=== PATIENT | female | born 1960 | race Caucasian/White ===

== ENCOUNTER → 2016-06-09 | Outpatient (CLI) | payer MEDICAID ==
--- NOTE | 2016-06-15 16:35 | MA ---
Screening Digital Mammogram Clinical Indications: Routine screening. Technique: Standard cephalocaudal and mediolateral oblique projections were obtained. An additional oblique lateral view is performed of the left breast. This examination was processed by the [employer] uter aided detection system. Comparison: November 2013 , October 2008 and June 2007. Breast density: D; The breast tissue is extremely dense. This may lower the sensitivity of mammograph y. Findings: CAD was reviewed. There is a new 13 mm rounded density in the central left breast seen dir ectly behind the left nipple on the cc view. Not all margins are well-defined on the cc view. This is obscured by dense breast parenchyma on the oblique lateral view. Remainder of the left and right eileen ast are stable. Impression: Possible new mass central left breast BI-RADS 0. Additional imaging left breast. Recommendation: Ultrasound for further evaluation, to differentiate cyst from solid. [facility] will send a result letter to the patient. Negative mammography should not preclude additional workup of a clinically suspicious finding. The patient's information is entered into a reminder system with a target due date for her next mammo gram.
== END ==
LOC: CIMAGING 08:03
DX: Z12.31 Encounter for screening mammogram for malignant neoplasm of breast (principal)
CPT/HCPCS: G0202

== ENCOUNTER → 2016-06-29 | Outpatient (CLI) | payer MEDICAID | LOC: CIMAGING 13:57 | DX: N60.02 Solitary cyst of left breast (principal) | CPT/HCPCS: 76641-PO ==

== ENCOUNTER 2017-05-22 09:27 | Emergency (ER) | payer MEDICAID ==
[2017-05-22 09:36] VITALS: O2SAT 99
[2017-05-22] MEDS ORDERED: NS 1,000 ML IV ONE (09:36)
--- NOTE | 2017-05-22 09:43 | EDPHY ---
H & P Stated Complaint: Bloody stool x 3 days Time Seen by Provider: 05/22/17 09:43 HPI/ROS: CHIEF COMPLAINT: Bloody stool, left lower quadrant pain HISTORY OF PRESENT ILLNESS: The patient has a history of diverticulitis. She had 3 bouts of diverticulitis last year to which required in-patient hospitalization. She has not been evaluated as an outpatient for possible colectomy. She presents to the ED with a 3 day history of bloody stool and left lower quadrant pain. She denies any vomiting. She denies melena. She denies any fever, cough or congestion. The patient has a past medical history significant for osteoarthritis. She takes no prescription medications. REVIEW OF SYSTEMS: A comprehensive 10 point review of systems is otherwise negative aside from elements mentioned in the history of present illness. Source: Patient Exam Limitations: No limitations - Personal History Current Tetanus Diphtheria and Acellular Pertussis (TDAP): Yes - Medical/Surgical History Hx Asthma: No Hx Chronic Respiratory Disease: No Hx Diabetes: No Hx Cardiac Disease: No Hx Renal Disease: No Hx Cirrhosis: No Hx Alcoholism: No Hx HIV/AIDS: No Hx Splenectomy or Spleen Trauma: No Other PMH: diverticulitis, OA, PTSD, Anxiety, ETOH abuse - Social History Smoking Status: Never smoked - Physical Exam Exam: General Appearance: Alert, no distress Eyes: Pupils equal and round no pallor or injection ENT, Mouth: Mucous membranes moist Respiratory: There are no retractions, lungs are clear to auscultation Cardiovascular: Regular rate and rhythm Gastrointestinal: Tenderness to palpation left lower quadrant, no peritoneal signs, normal bowel sounds Neurological: A&O, normal motor function, normal sensory exam, normal cranial nerves Skin: Warm and dry, no rashes Musculoskeletal: Neck is supple nontender Extremities: symmetrical, full range of motion Constitutional: Initial Vital Signs Temperature (C) 36.3 C 05/22/17 09:33 Heart Rate 88 05/22/17 09:33 Respiratory Rate 18 05/22/17 09:33 Blood Pressure 120/87 H 05/22/17 09:33 O2 Sat (%) 99 05/22/17 09:33 O2 Delivery Mode Room Air Allergies/Adverse Reactions: No Known Allergies Allergy (Unverified 05/22/17 09:33) Home Medications: Medication Instructions Recorded Ondansetron Odt [Zofran Odt] 4 mg PO Q4PRN PRN #20 tab 05/22/17 levOFLOXACIN [Levaquin] 500 mg PO DAILY #10 tab 05/22/17 metroNIDAZOLE [Flagyl 500 mg (RX)] 500 mg PO TID #30 tab 05/22/17 oxyCODONE/APAP 5/325 [Percocet 1 - 2 tab PO Q6-8PRN PRN #20 tab 05/22/17 5/325 (RX)] Medical Decision Making ED Course/Re-evaluation: The patient presents the ED with left lower quadrant pain and slightly bloody stool. She is afebrile without significant leukocytosis. She has no peritoneal findings on exam. She has a history of multiple recurrent bouts of diverticulitis. The patient appears appropriate for outpatient management. I do not feel that imaging is indicated given her known history of diverticular disease and reassuring clinical examination. The patient will be discharged home with prescriptions for Levaquin and Flagyl. She is given customary aftercare instructions and return precautions. I have recommended the patient follow up with our on-call surgeon to discuss the role of operative intervention and treatment of her disease. I re-evaluated the patient at 11:00 a.m.. She is comfortable with this plan and disposition. She is given customary aftercare instructions and return precautions. Differential Diagnosis: Differential diagnosis considered includes peritonitis, diverticulitis, perforation, obstruction - Data Points Laboratory Results: Laboratory Results 05/22/17 09:32 05/22/17 09:32 05/22/17 05/22/17 09:32 09:32 WBC 5.27 10^3/uL 10^3/uL (3.80-9.50) RBC 4.58 10^6/uL 10^6/uL (4.18-5.33) Hgb 14.2 g/dL g/dL (12.6-16.3) Hct 41.8 % % (38.0-47.0) MCV 91.3 fL fL (81.5-99.8) MCH 31.0 pg pg (27.9-34.1) MCHC 34.0 g/dL g/dL (32.4-36.7) RDW 12.5 % % (11.5-15.2) Plt Count 322 10^3/uL 10^3/uL (150-400) MPV 8.6 fL L fL (8.7-11.7) Neut % (Auto) 62.1 % % (39.3-74.2) Lymph % (Auto) 24.5 % % (15.0-45.0) [place] % (Auto) 9.3 % % (4.5-13.0) Eos % (Auto) 3.0 % % (0.6-7.6) Baso % (Auto) 0.9 % % (0.3-1.7) Nucleat RBC Rel Count 0.0 % % (0.0-0.2) Absolute Neuts (auto) 3.27 10^3/uL 10^3/uL (1.70-6.50) Absolute Lymphs (auto) 1.29 10^3/uL 10^3/uL (1.00-3.00) Absolute Monos (auto) 0.49 10^3/uL 10^3/uL (0.30-0.80) Absolute Eos (auto) 0.16 10^3/uL 10^3/uL (0.03-0.40) Absolute Basos (auto) 0.05 10^3/uL 10^3/uL (0.02-0.10) Absolute Nucleated RBC 0.00 10^3/uL 10^3/uL (0-0.01) Immature Gran % 0.2 % % (0.0-1.1) Immature Gran # 0.01 10^3/uL 10^3/uL (0.00-0.10) Sodium 142 mEq/L mEq/L (134-144) Potassium 3.9 mEq/L mEq/L (3.5-5.2) Chloride 104 mEq/L mEq/L (97-110) Carbon Dioxide 23 mEq/l mEq/l (22-31) Anion Gap 15 mEq/L mEq/L (8-16) BUN 10 mg/dL mg/dL (7-23) Creatinine 0.7 mg/dL mg/dL (0.6-1.0) Estimated GFR > 60 Glucose 160 mg/dL H mg/dL (70-100) Calcium 10.4 mg/dL mg/dL (8.5-10.4) Medications Given: Discontinued Medications Sodium Chloride (Ns) 1,000 mls @ 0 mls/hr IV EDNOW ONE; Wide Open PRN Reason: Protocol Stop: 05/22/17 09:37 Last Admin: 05/22/17 09:44 Dose: 1,000 mls Departure - Departure Disposition: Home, Routine, Self-Care Clinical Impression: Acute diverticulitis Condition: Good Instructions: Diverticulitis (ED) Additional Instructions: 1. Please return to the ED for markedly worsening pain, fever, vomiting or other concerns. 2. Antibiotics as directed for next 10 days. 3. Percocet as needed for pain, Zofran as needed for nausea. 4. You have been given the number of our on-call general surgeon Dr. Patel. I recommend scheduling a follow-up visit with her to discuss the role of possible surgical intervention in control of your chronic diverticulitis. Referrals: Paula Patel MD [Medical Doctor] - As per Instructions Prescriptions: levOFLOXACIN [Levaquin] 500 mg PO DAILY #10 tab metroNIDAZOLE [Flagyl 500 mg (RX)] 500 mg PO TID #30 tab Ondansetron Odt [Zofran Odt] 4 mg PO Q4PRN PRN #20 tab PRN Reason: For Nausea oxyCODONE/APAP 5/325 [Percocet 5/325 (RX)] 1 - 2 tab PO Q6-8PRN PRN #20 tab PRN Reason: for pain
[2017-05-22 09:44] LABS: PLATELET COUNT 322 10^3/uL (150-400)
[2017-05-22 11:23] VITALS: BP 115/74; PULSE 84; RESP 16; TEMP 98.2
== END 2017-05-22 11:22 | disposition home or self-care (01) ==
LOC: EDUNIT#
DX: K57.92 Diverticulitis of intestine, part unspecified, without perforation or abscess without bleeding (principal); E86.9 Volume depletion, unspecified

== ENCOUNTER 2017-06-15 05:47 | Inpatient (IN) | payer MEDICAID ==
[2017-06-15] MEDS ORDERED: LIDOCAINE 1% 2 ML INJ ID PRN (05:59)
[2017-06-15] MEDS ORDERED: LR 1,000 ML IV ONE (05:59)
[2017-06-15] MEDS ORDERED: cefOXitin SODIUM 2 GM in STERILE WATER INJ 21 ML IV ONE (06:00)
[2017-06-15] MEDS ORDERED: MIDAZOLAM 2 MG/2 ML VIAL IVP ONE (06:54)
--- NOTE | 2017-06-15 06:55 | PDANEPAE ---
ANE History of Present Illness diverticulosis and recurrent diverticulitis ANE Past Medical History - Cardiovascular History Hx Hypertension: No Hx Arrhythmias: No Hx Chest Pain: No Hx Coronary Artery / Peripheral Vascular Disease: No Hx CHF / Valvular Disease: No Hx Palpitations: No - Pulmonary History Hx COPD: No Hx Asthma/Reactive Airway Disease: No Hx Recent Upper Respiratory Infection: No Hx Oxygen in Use at Home: No Hx Sleep Apnea: No Sleep Apnea Screening Result - Last Documented: Negative - Neurologic History Hx Cerebrovascular Accident: No Hx Seizures: No Hx Dementia: No - Endocrine History Hx Diabetes: No Hypothyroid: No Hyperthyroid: No Obesity: no - Renal History Hx Renal Disorders: No - Liver History Hx Hepatic Disorders: No - Neurological & Psychiatric Hx Hx Neurological and Psychiatric Disorders: Yes Neurological / Psychiatric History Comment: PTSD. ANXIETY - Cancer History Hx Cancer: No - Congenital Disorder History Hx Congenital Disorders: No - GI History GERD: no Hx Gastrointestinal Disorders: Yes Gastrointestinal History Comment: DIVERTICULITIS 4X OVER PAST YEAR. BLOODY STOOLS - Other Health History Other Health History: OSTEOARTHRITIS ALL JOINTS RT HIP. THE WORST. ETOH ABUSE NONE FOR LONG TIME - Chronic Pain History Chronic Pain: Yes (RT HIP) - Surgical History Prior Surgeries: LUMBAR FUSION 2002. VAG HYST. ANSHUL CARPAL TUNNEL. ANSHUL BUNIONECTOMY ANE Review of Systems Review of Systems: - Exercise capacity METS (RN): 4 METS ANE Patient History - Allergies Allergies/Adverse Reactions: No Known Allergies Allergy (Unverified 05/22/17 09:33) - Home Medications Home Medications: Herbals/Supplements -Info Only 1 ea PO DAILY 06/14/17 [Last Taken 2 Weeks Ago ~ 06/01/17] Multivitamins [Multivitamin (*)] 1 each PO DAILY 06/14/17 [Last Taken 06/14/17 08:00] - NPO status NPO Since - Liquids (Date): 06/14/17 NPO Since - Liquids (Time): 22:00 NPO Since - Solids (Date): 06/14/17 NPO Since - Solids (Time): 17:00 - Anes Hx Anes Hx: post operative nausea and vomiting - Smoking Hx Smoking Status: Never smoked - Alcohol Use Alcohol Use: None - Family Anes Hx Family Anes Hx: neg - N/A ANE Labs/Vital Signs - Vital Signs Blood Pressure: 145/100 Heart Rate: 85 Respiratory Rate: 18 O2 Sat (%): 96 Height: 160.02 cm Weight: 62.142 kg ANE Physical Exam - Airway Neck exam: FROM Mallampati Score: Class 1 Mouth exam: normal dental/mouth exam - Pulmonary Pulmonary: no respiratory distress, no rales or rhonchi, clear to auscultation - Cardiovascular Cardiovascular: regular rate and rhythym, no murmur, rub, or gallop - ASA Status ASA Status: II ANE Anesthesia Plan Anesthesia Plan: general endotracheal anesthesia
--- NOTE | 2017-06-15 07:05 | PDHPUP ---
History & Physical Update H&P update statement: This history and physical update is based on an assessment of the patient which was completed after admission or registration (within 24 hours), but prior to the surgery/procedure. H&P update: H&P reviewed & patient examined, no change in patient's condition since H&P completed
[2017-06-15] MEDS ORDERED: REMIFENTANIL HCL 1 MG VIAL ONE ×2 (07:13→09:12)
[2017-06-15] MEDS ORDERED: PROPOFOL/EMULSION 500 MG/50 ML BOTTLE IV ONE ×2 (07:13→09:13)
[2017-06-15] MEDS ORDERED: DEXAMETHASONE 4 MG/ML VIAL ONE (07:13)
[2017-06-15] MEDS ORDERED: ONDANSETRON 4 MG/2 ML VIAL ONE ×2 (07:13→11:03)
[2017-06-15] MEDS ORDERED: fentaNYL 100 MCG/2 ML INJ ONE ×3 (07:13→10:59)
[2017-06-15] MEDS ORDERED: ROCURONIUM 50 MG/5 ML VIAL ONE (07:14)
[2017-06-15] MEDS ORDERED: LIDOCAINE 2% 5 ML SDV ONE (07:23)
[2017-06-15] MEDS ORDERED: PROPOFOL 200 MG/20 ML VIAL ONE (07:26)
[2017-06-15] MEDS ORDERED: SCOPOLAMINE HYDROBROMIDE 1 MG/3 DAYS PATCH TD ONE (07:30)
[2017-06-15] MEDS ORDERED: PHENYLEPHRINE HCL 100 MCG/ML SYR ONE (07:43)
[2017-06-15] MEDS ORDERED: BUPIVACAINE 0.5% 30 ML SDV ONE (07:49)
[2017-06-15] MEDS ORDERED: LR 500 ML IV PRN (08:09)
[2017-06-15] MEDS ORDERED: PROMETHAZINE HCL 25 MG/ML INJ IVP PRN ×2 (08:09→10:31)
[2017-06-15] MEDS ORDERED: NALOXONE HCL 0.4 MG/ML INJ IVP PRN (08:09)
[2017-06-15] MEDS ORDERED: ONDANSETRON 4 MG/2 ML VIAL IVP PRN ×2 (08:09→10:29)
[2017-06-15] MEDS ORDERED: KETOROLAC 30 MG/1 ML SDV ONE (10:20)
--- NOTE | 2017-06-15 10:28 | POSTOPPROG ---
Post Op Note Date of Operation: 06/15/17 Surgeon: Paula Patel Product Safety Tester: odell Anesthesiologist: reese Anesthesia: GET(General Endotracheal) Pre-op Diagnosis: diverticulitis Post-op Diagnosis: same Indication: 56 yo with recurrent diverticulitus Procedure: lap sigmoidectomy with splenic flexure takedown Findings: multiple tics Inf/Abcess present in the surg proc area at time of surgery?: No EBL: Minimal Specimen(s): sigmoid colon and rings
[2017-06-15] MEDS ORDERED: NS 1,000 ML IV SCH (10:30)
[2017-06-15] MEDS ORDERED: ACETAMINOPHEN 325 MG TAB PO PRN (10:32)
[2017-06-15] MEDS ORDERED: HYDROmorphONE/DILAUDID 1 MG/ML INJ ONE (10:59)
[2017-06-15] MEDS: fentaNYL 100 MCG/2 ML INJ IVP PRN ×2 (11:00→11:26)
[2017-06-15] MEDS: HYDROmorphONE/DILAUDID 1 MG/ML INJ IVP PRN ×2 (11:00→11:30)
[2017-06-15] MEDS ORDERED: PROMETHAZINE HCL 25 MG/ML INJ ONE (11:19)
[2017-06-15] MEDS: SCOPOLAMINE HYDROBROMIDE 1 MG/3 DAYS PATCH TD SCH (11:29)
[2017-06-15] MEDS: KETOROLAC 15 MG/1 ML SDV IVP SCH ×3 (11:50→23:13)
--- NOTE | 2017-06-15 13:45 | POSTANESTH ---
Post Anesthetic Evaluation Cardiovascular Status: Normal, Stable Respiratory Status: Normal, Stable Level of Consciousness/Mental Status: Can Participate in Eval Pain Control: Adequate, Prn Tx Ordered Nausea/Vomiting Control: Adequate, Prn Tx Ordered Complications Possibly Related to Anesthesia: None Noted
--- NOTE | 2017-06-15 15:16 | GOP ---
[f rep st] OPERATIVE REPORT DATE OF OPERATION: 06/15/2017 SURGEON: Paula Patel MD DIRECTOR OF BLOOD: Nallely Cummins PA-C. ANESTHESIOLOGIST: Dr. Andrés Amato/. PREOPERATIVE DIAGNOSIS: Recurrent sigmoid diverticulitis. POSTOPERATIVE DIAGNOSIS: Recurrent sigmoid diverticulitis. PROCEDURE PERFORMED: Laparoscopic sigmoid colectomy with splenic flexure takedown. FINDINGS: Multiple diverticula, no obvious areas of active inflammation. SPECIMENS: Sigmoid colon and anastomotic rings. ESTIMATED BLOOD LOSS: 20 cc. INDICATIONS: Carey Garcia is a 56-year-old woman who has had multiple episodes of diverticulitis. DESCRIPTION OF PROCEDURE: The patient was brought into the operating room, placed supine on the table, and general anesthesia was administered. She was placed in lithotomy position. A Pulido catheter was placed. Her abdomen and perineum were prepped and draped in the usual sterile fashion. I infiltrated all sites with 0.5% Marcaine prior to making incisions. I made an incision at her umbilicus. I elevated it. I inserted the Veress needle. It ultimately passed the hang-drop test. Her abdomen insufflated easily to a pressure of 15 mmHg. I placed a 5 mm trocar with the camera at this site. Under direct vision , I placed a 10 mm suprapubic trocar and a 5 mm trocar in the right lower quadrant. I explored her abdomen. There were multiple diverticula throughout her colon. At the area of her rectum, there were no diverticula. I performed a lateral to medial dissection. I was able to identify and protect the ureter. The colon folded back on itself at the splenic flexure. I continued around the splenic flexure to reduce all these adhesions including taking down the gastrocolic ligament. I then began my medial approach and selected a place on the descending colon where there were less diverticula. I continued my dissection down into the pelvis where the tenia splayed. Once I was satisfied with my points of transection, I used an Endo ASHLEY 60, firing across the rectum. I grasped the end of the sigmoid colon. I then enlarged the incision by the 10 mm port, dissected down through the subcutaneous area, dissected the fascia and spread the muscles and inserted an Faustino wound protector. I brought the distal sigmoid colon up onto her abdominal wall. I selected a point of transection on the distal colon. I passed the specimen off the field. I performed hand pursestring suture with 2-0 Prolene. I was not satisfied with the tightening of the pursestring. I removed the suture and performed this again with a 2-0 Prolene. The descending colon was placed back into the abdomen. I placed a Otterbein around the Faustino wound protector and a towel clip. I re-insufflated the abdomen. The dilator was placed through the anus and ultimately the stapler. The spike was deployed. I placed the anvil onto the spike. There was no twisting or torsion of the colon and the colon reached down into the pelvis nicely. The stapler was deployed. A leak test was performed and no leaks were noted. The anastomotic rings were intact. I examined her abdomen again. There was no bleeding and there was no twisting or torsion on the colon. I placed a piece of amniofix over the anastomosis. I removed the ports under direct vision and the abdomen allowed to desufflate. I closed the fascia with 0 PDS. I closed the skin with 3-0 Vicryl followed by 4- 0 Monocryl. Dermabond applied. She was awakened in the operating room, extubated, and transferred to PACU in stable condition. /[id number]/MODL MTDD
[2017-06-16 04:51] LABS: PLATELET COUNT 170 10^3/uL (150-400)
[2017-06-16] MEDS: KETOROLAC 15 MG/1 ML SDV IVP SCH ×4 (05:09→23:25)
[2017-06-16] MEDS: NS 1,000 ML IV SCH ×2 (05:09→18:33)
[2017-06-16] MEDS: ENOXAPARIN 40 MG/0.4 ML SYR SC SCH (11:13)
--- NOTE | 2017-06-16 12:26 | ASMTCMCOM ---
CM Note CM Note Notes: Spoke w/RN, pt lives with father and brother + ARCENIO live nearby. Anticipate pt will dc home w/support of family when medically stable. CM available for any changes. DC Plan: Independent Date Signed: 06/16/2017 12:25 PM Electronically Signed By:Eva Cota RN
--- NOTE | 2017-06-16 12:43 | SOAPPROG ---
SOAP Progress Note Assessment/Plan: Assessment: POSTOP DAY 1/DOING WELL/AFEBRILE/WOUND OKAY/ABDOMEN SOFT/NEGATIVE FLATUS Plan: SIPS OF CLEARS/AMBULATE 06/16/17 12:42 Objective: Vital Signs Temp Pulse Resp BP Pulse Ox 37.1 C 74 15 112/70 95 06/16/17 11:27 06/16/17 11:27 06/16/17 11:27 06/16/17 11:27 06/16/17 11:27 Laboratory Results 06/16/17 04:29 06/16/17 04:29 06/15/17 06/16/17 06/17/17 05:59 05:59 05:59 Intake Total 2800 Output Total 1120 Balance 1680 ICD10 Worksheet Patient Problems: Problems Problem Status Onset RECURRENT DIVERTICULITIS Acute
[2017-06-17] MEDS: KETOROLAC 15 MG/1 ML SDV IVP SCH ×4 (05:07→23:11)
[2017-06-17] MEDS: NS 1,000 ML IV SCH (08:41)
[2017-06-17] MEDS: ENOXAPARIN 40 MG/0.4 ML SYR SC SCH (09:01)
--- NOTE | 2017-06-17 13:43 | SOAPPROG ---
SOAP Progress Note Assessment/Plan: Assessment: POSTOP DAY 1/DOING WELL/AFEBRILE/WOUND OKAY/ABDOMEN SOFT/NEGATIVE FLATUS Plan: SIPS OF CLEARS/AMBULATE 06/16/17 12:42 06/17/17 13:42 Doing very well/afebrile/wound okay/positive flatus/abdomen soft nontender with positive bowel sounds Advance diet/possibly home in the a.m./path pending Objective: Vital Signs Temp Pulse Resp BP Pulse Ox 36.9 C 87 16 128/90 H 95 06/17/17 07:46 06/17/17 07:46 06/17/17 07:46 06/17/17 07:46 06/17/17 07:46 Laboratory Results 06/16/17 04:29 06/16/17 04:29 06/16/17 06/17/17 06/18/17 05:59 05:59 05:59 Intake Total 2800 2235 450 Output Total 1120 1300 Balance 1680 935 450 ICD10 Worksheet Patient Problems: Problems Problem Status Onset RECURRENT DIVERTICULITIS Acute
[2017-06-18] MEDS: KETOROLAC 15 MG/1 ML SDV IVP SCH ×3 (05:07→18:32)
[2017-06-18] MEDS ORDERED: PATCH REMOVAL 1 EA PATCH TD SCH (08:08)
[2017-06-18] MEDS: SCOPOLAMINE HYDROBROMIDE 1 MG/3 DAYS PATCH TD SCH (08:29)
[2017-06-18] MEDS: ENOXAPARIN 40 MG/0.4 ML SYR SC SCH (08:32)
--- NOTE | 2017-06-18 11:02 | ASMTCMCOM ---
CM Note CM Note Notes: THANG spoke w/ MEÑO Magallanes regarding d/c POC. The plan remains the same that pt will d/c independent when medically stable. Therapies are recommending home independent with some outpatient PT. CM available for changes. Plan: Independent Date Signed: 06/18/2017 11:01 AM Electronically Signed By:JOHN Carranza
--- NOTE | 2017-06-18 12:37 | SOAPPROG ---
SOAP Progress Note Assessment/Plan: Assessment/Plan: 56 yo F s/p lap sigmoid colectomy with splenic flexure takedown POD # 3 Advance to regular diet will see how she tolerates and likely Discharge: tomorrow morning, f/u in 1 week in my office S: Feeling great, a little sore. Discussed discharge instructions and restrictions. O: General: patient sitting up in chair eating light lunch, in no acute distress Abd: incisions cdi, soft and appropriately tender, BS present 06/18/17 17:52 Objective: Vital Signs Temp Pulse Resp BP Pulse Ox 37.1 C 75 16 128/80 H 94 06/18/17 07:34 06/18/17 07:34 06/18/17 07:34 06/18/17 07:34 06/18/17 07:34 Laboratory Results 06/16/17 04:29 06/16/17 04:29 06/17/17 06/18/17 06/19/17 05:59 05:59 05:59 Intake Total 2235 2250 Output Total 1300 550 Balance 935 1700 ICD10 Worksheet Patient Problems: Problems Problem Status Onset RECURRENT DIVERTICULITIS Acute
[2017-06-19] MEDS: KETOROLAC 15 MG/1 ML SDV IVP SCH ×3 (00:18→12:47)
[2017-06-19 08:17] VITALS: BP 126/81; PULSE 84; RESP 14; TEMP 98.1; O2SAT 96
[2017-06-19] MEDS: ENOXAPARIN 40 MG/0.4 ML SYR SC SCH (09:16)
[2017-06-19] MEDS ORDERED: POLYETHYLENE GLYCOL 3350 17 GM PKT PO PRN (13:14)
[2017-06-19] MEDS ORDERED: BISACODYL 10 MG SUPP PR PRN (13:14)
[2017-06-19] MEDS ORDERED: LACTULOSE 20 GM/30 ML UDCUP PO PRN (13:14)
[2017-06-19] MEDS ORDERED: MAGNESIUM HYDROXIDE 30 ML UDCUP PO PRN (13:14)
--- NOTE | 2017-06-19 14:55 | ASDISCHSUM ---
Discharge Information Plan Status:Home with No Needs Medically Cleared to Leave:06/18/2017 Discharge Date:06/19/2017 02:00 PM CM D/C Disposition: ADT D/C Disposition:Home, Routine, Self-Care Projected Discharge Date:06/19/2017 12:00 AM Transportation at D/C: Discharge Delay Reason: Follow-Up Date:06/19/2017 12:00 AM Discharge Slot: Final Diagnosis: Placement Information Patient Contact Information Contact Name:BA Relationship:Friend Address: Work Phone: City: [facility] Phone: State/[place] Code: Email: Financial Information Financial Class: Primary Plan Desc:[employer] [place] Primary Plan Number:[id number] Secondary Plan Desc: Secondary Plan Number: Assessment Information [facility] Progress Note CM Note CM Note Notes: Spoke w/MEÑO, pt lives with father and brother + ARCENIO live nearby. Anticipate pt will dc home w/support of family when medically stable. CM available for any changes. DC Plan: Independent Date Signed: 06/16/2017 12:25 PM Electronically Signed By:Eva Cota RN [facility] Progress Note CM Note CM Note Notes: CM spoke w/ MEÑO Magallanes regarding d/c POC. The plan remains the same that pt will d/c independent when medically stable. Therapies are recommending home independent with some outpatient PT. CM available for changes. Plan: Independent Date Signed: 06/18/2017 11:01 AM Electronically Signed By:JOHN Carranza Intervention Information
[2017-06-19] MEDS ORDERED: SENNOSIDES/DOCUSATE SODIUM TAB PO SCH (21:00)
== END 2017-06-19 14:00 | disposition home or self-care (01) | DRG 331 ==
LOC: F3N 05:47 → F3E 12:16
PROVIDERS: ADMIT Surgery; ATTEND Surgery
PROC: 0DTN4ZZ Resection of Sigmoid Colon, Percutaneous Endoscopic Approach (ICD-10-PCS; principal; 2017-06-15 07:15)
DX: K57.32 Diverticulitis of large intestine without perforation or abscess without bleeding (principal); F43.10 Post-traumatic stress disorder, unspecified; F41.9 Anxiety disorder, unspecified; M16.11 Unilateral primary osteoarthritis, right hip
CPT/HCPCS: 97161-GP; 97165-GO; C9399; J0694; J1100; J1170; J1650; J1885; J2250; J2370; J2405; J2550; J2704; J3010

== ENCOUNTER → 2017-07-18 | Outpatient (CLI) | payer MEDICAID | LOC: FIMAGING 13:03 | PROVIDERS: ATTEND Nurse Practitioner Family | DX: Z12.31 Encounter for screening mammogram for malignant neoplasm of breast (principal) ==

== ENCOUNTER 2017-10-25 08:35 | Emergency (ER) | payer MEDICAID ==
--- NOTE | 2017-10-25 09:54 | EDPHY ---
H & P Time Seen by Provider: 10/25/17 09:21 HPI/ROS: HPI Unable to sleep. 57-year-old female by private vehicle. This patient reports that she has a history of PTSD. She reports that over the last 6 weeks she has been thinking about the issues that created her PTSD. She reports that for the last 3 days she has not been able to sleep. She reports that she currently is getting a new therapist and will be able to get in to see this person until next week. She directly and unequivocally denies suicidal ideation. No homicidal thoughts. She is asking for medication to help her sleep. She has no other complaints. ROS: Constitutional: No fever, no chills. No weakness. Eyes: No discharge. No changes in vision. ENT: No sore throat. No nasal congestion or rhinorrhea. Respiratory: No cough. No shortness of breath. Cardiac: No chest pain, no palpitations. Gastrointestinal: No abdominal pain, no vomiting, no diarrhea. Genitourinary: No hematuria. No dysuria or increased frequency with urination. Musculoskeletal: No back pain. No neck pain. No myalgias or arthralgias. Skin: No rashes. Neurological: No headache. No focal weakness or altered sensation. Past medical history: Diverticulitis, osteoarthritis, alcohol abuse, PTSD, anxiety. Social history: History of alcohol abuse. Nonsmoker. Here by herself. Physical Exam: General Appearance: Alert, no distress. This patient is responding to questions appropriately and in full sentences. This patient appears well- hydrated and well-nourished. Eyes: Pupils equal and round no pallor or injection. No lid edema, erythema or injection. Respiratory: There are no retractions, lungs are clear to auscultation with good air movement bilaterally. Cardiovascular: Regular rate and rhythm. No murmur. Gastrointestinal: Abdomen is soft and nontender, no masses, bowel sounds normal. No focal tenderness at McBurney's point. No Negrete sign. Neurological: Motor sensory function is grossly intact. Cranial nerves are normal. Gait is normal. No tremor. Skin: Warm and dry, no rashes. Musculoskeletal: Neck is supple and nontender. Extremities are symmetrical. All joints range without pain or impingement. Psychiatric: No agitation. No depression. Database: EKG: Imaging: Procedures: Emergency department course: Triage vital signs reviewed. She is moderately hypertensive. Vital signs are otherwise normal. This patient is not suicidal. She does not require emergent behavioral health evaluation. I discussed with her different sleeping aid medications. I will prescribe her Ambien, 10 mg tablets. She will follow up with her therapist next week for re-evaluation and further management of her insomnia. She feels comfortable with this plan. Follow-up and return to emergency department precautions were thoroughly reviewed with her. All of her questions were answered. She was discharged from the emergency department in good condition. Differential Diagnosis: The differential diagnosis on this patient includes but is not limited to insomnia, history of PTSD. Suicidal ideation, homicidal ideation, psychosis unlikely. This represents a partial list of diagnoses considered. These considerations are based on history, physical exam, past history, reassessment and diagnostic testing. Smoking Status: Never smoked Constitutional: Initial Vital Signs Temperature (C) 36.8 C 10/25/17 08:37 Heart Rate 86 10/25/17 08:37 Respiratory Rate 18 10/25/17 08:37 Blood Pressure 167/105 H 10/25/17 08:37 O2 Sat (%) 100 10/25/17 08:37 O2 Delivery Mode Room Air Allergies/Adverse Reactions: No Known Allergies Allergy (Verified 10/25/17 08:40) Home Medications: Medication Instructions Recorded Zolpidem Tartrate [Ambien] 10 mg PO PRN PRN #12 tablet 10/25/17 Departure - Departure Disposition: Home, Routine, Self-Care Clinical Impression: Insomnia Condition: Good Instructions: Insomnia (ED) Additional Instructions: Read and follow provided instructions. Follow-up with your primary care physician or year therapist next week for re- evaluation and further management of your PTSD and insomnia. Take medication as prescribed only for sleeping. Do not drive while on this medication. Return to the emergency department for worsening symptoms, worsening depression , suicidal thoughts or other serious concerns. Referrals: Sarai Chow NP [Primary Care Provider] - As per Instructions Prescriptions: Zolpidem Tartrate [Ambien] 10 mg PO PRN PRN #12 tablet PRN Reason: Insomnia
[2017-10-25 10:13] VITALS: BP 168/109
== END 2017-10-25 10:16 | disposition home or self-care (01) ==
DX: G47.00 Insomnia, unspecified (principal)

== ENCOUNTER → 2018-09-11 | Outpatient (CLI) | payer MEDICAID | LOC: FIMAGING 14:25 | PROVIDERS: ATTEND Nurse Practitioner Family | DX: Z12.31 Encounter for screening mammogram for malignant neoplasm of breast (principal) ==